=== PATIENT | male | born 1965 | race Caucasian/White ===

== ENCOUNTER → 2023-12-15 09:13 | Outpatient (REF) | payer BC, SELFPAY | LOC: RAD 09:13 | PROVIDERS: ATTENDING PHYSICIAN Nurse Practitioner Family | DX: M25.569 Pain in unspecified knee (principal) | CPT/HCPCS: 73564 ==

== ENCOUNTER → 2024-09-03 15:27 | Outpatient (REF) | payer OTHER, SELFPAY | LOC: RAD 15:27 | PROVIDERS: ATTENDING PHYSICIAN Nurse Practitioner Family | DX: M25.561 Pain in right knee (principal) | CPT/HCPCS: 73564 ==

== ENCOUNTER → 2024-11-05 09:43 | Outpatient (REF) | payer OTHER, SELFPAY | LOC: WDC 09:43 | PROVIDERS: ATTENDING PHYSICIAN Nurse Practitioner Family; FAMILY PHYSICIAN Internal Medicine | DX: N64.4 Mastodynia (principal) | CPT/HCPCS: 76642; 77062; 77066 ==

== ENCOUNTER → 2024-11-09 11:48 | Outpatient (REF) | payer OTHER, SELFPAY ==
--- NOTE | 2024-11-09 15:13 | OID.BR.INTR ---
[facility] - Initial
- -
Date of Contact: 11/09/24
Met with patient. Will follow up as needed per protocol.
== END ==
LOC: WDC 11:48
PROVIDERS: ATTENDING PHYSICIAN Nurse Practitioner Family
DX: N63.41 Unspecified lump in right breast, subareolar (principal)
CPT/HCPCS: 88305; 19083